=== PATIENT | female | born 1995 | race Caucasian/White ===

== ENCOUNTER 2021-11-15 02:31 | Emergency (ER) | payer BC ==
[~2021-11-15] VITALS: Ht 167.6 cm; Wt 81.6 kg
--- NOTE | 2021-11-15 03:29 | NUR ---
AT BEDSIDE. PATIENT PLACED ON MONITOR. SOB, COVID POSITIVE SINCE 11/12/21.
[2021-11-15] MEDS ORDERED: ASPIRIN 81 MG TAB.CHEW PO ONE (03:30)
--- NOTE | 2021-11-15 03:34 | NUR ---
RADIOLOGY AT [facility]
[2021-11-15] MEDS ORDERED: ASPIRIN 81 MG TAB.CHEW ONE (03:46)
--- NOTE | 2021-11-15 03:50 | NUR ---
blood drawn, covid swab done and urine collected. sent to lab
--- NOTE | 2021-11-15 03:56 | NUR ---
ekg at bedside
[2021-11-15 04:22] LABS: CALCIUM, SERUM 9.1 mg/dL (8.5-10.1); CARBON DIOXIDE 25 mmol/L (21-32); CHLORIDE 101 mmol/L (98-107); CREATININE 0.8 mg/dL (0.6-1.3); GLUCOSE 102 mg/dL (74-106); POTASSIUM 4.2 mmol/L (3.5-5.1); SODIUM SERUM 137 mmol/L (136-145); UREA NITROGEN, BLOOD 8 mg/dL (7-18)
[2021-11-15 04:34] LABS: ALANINE AMINOTRANSFERASE 25 U/L (12-78); ALBUMIN 4.3 g/dL (3.4-5.0); ALKALINE PHOSPHATASE 50 U/L (46-116); ASPARTATE AMINOTRANSFERASE 24 U/L (15-37); BILIRUBIN,DIRECT 0.1 mg/dL (0.0-0.2); BILIRUBIN,TOTAL 0.4 mg/dL (0.2-1.0); TOTAL PROTEIN, SERUM 8.3 g/dL (6.4-8.2)
[2021-11-15 04:40] LABS: BASOPHILS % (AUTO) 0.6 % (0.0-2.0); EOSINOPHILS % (AUTO) 1.8 % (0.0-6.0); HEMATOCRIT 36 % (33-45); HEMOGLOBIN 11.2 g/dL (11.5-14.8); LYMPHOCYTES # (AUTO) 1.7 K/uL (0.8-4.8); LYMPHOCYTES % (AUTO) 24.5 % (20.0-44.0); MEAN CORPUSCULAR HGB CONC 32 g/dl (31.0-36.0); MEAN CORPUSCULAR VOLUME 64 fL (82-100); MONOCYTES # (AUTO) 0.4 K/uL (0.1-1.30); MONOCYTES % (AUTO) 6.5 % (2.0-12.0); NEUTROPHILS # (AUTO) 4.6 K/uL (1.8-8.9); NEUTROPHILS % (AUTO) 66.6 % (43.0-81.0); PLATELET COUNT (AUTO) 323 K/uL (150-450); RED BLOOD CELL COUNT(AUTO) 5.58 MIL/uL (4.0-5.2); WHITE BLOOD COUNT (AUTO) 6.9 K/uL (4.3-11.0)
[2021-11-15] MEDS ORDERED: ALPR0.5T PO (05:12)
--- NOTE | 2021-11-15 05:18 | NUR ---
CALLED [facility] FOR CXR READ
[2021-11-15 09:08] VITALS: BP 124/78
--- NOTE | 2021-11-15 09:08 | NUR ---
Patient discharged to home in stable condition. Written and verbal after care instructions given. Patient verbalizes understanding of instruction.
[2021-11-15 13:42] LABS: BAND % (MANUAL) 1 % (0.0-5.0); EOSINOPHILS % (MANUAL) 1 % (0-4); LYMPHOCYTES % (MANUAL) 24 % (16-48); MONOCYTES % (MANUAL) 5 % (0-11.0); NEUTROPHILS % (MANUAL) 69 (42-76)
== END 2021-11-15 09:09 | disposition home or self-care (01) ==
LOC: ER 02:40
DX: R07.9 Chest pain, unspecified (principal); R06.00 Dyspnea, unspecified; Z20.822 Contact with and (suspected) exposure to COVID-19; Z86.16 Personal history of COVID-19; D56.9 Thalassemia, unspecified
CPT/HCPCS: 36415; 71045; 80048; 80076; 83880; 84484 ×2; 85007; 85025; 87426; 93005; 99285; C9803